=== PATIENT | female | born 1990 | race Caucasian/White ===

== ENCOUNTER 2016-10-06 01:53 | Emergency (ER) | payer OTHER ==
[~2016-10-06] VITALS: Ht 147.3 cm; Wt 96.5 kg
[~2016-10-06 01:53] MED LIST: PREN-39 PO
[2016-10-06 02:04] VITALS: Ht 147.3 cm; Wt 96.5 kg
--- NOTE | 2016-10-06 02:37 | ERD ---
ER Documentation Chief Complaint Date/Time DATE: 10/06/16 TIME: 02:36 Chief Complaint left ankle pain x 1 week, hx of l heel spur, been walking on side of foot HPI 25 year female left ankle pain and left heel pain for 1 week. Meanwhile, side of her foot. Denies any fevers or chills. Denies any nausea vomiting. Denies any other current complaints ROS All systems reviewed and are negative except as per history of present illness. Medications Home Meds Reported Medications Vits W-Ca,Fe,Fa(<1MG) ( Vitamins) 1 Tab Tablet, 1 TAB PO DAILY 11/26/14 Allergies Allergies: Coded Allergies: Penicillins (Verified Allergy, Mild, RASH, 10/06/16) PMhx/Soc History of Surgery: Yes (gallstone removal, c section x 3 ) Anesthesia Reaction: No Hx Neurological Disorder: No Hx Respiratory Disorders: No Hx Cardiac Disorders: No Hx Psychiatric Problems: No Hx Miscellaneous Medical Probl: No Hx Alcohol Use: No Hx Substance Use: No Hx Tobacco Use: No Physical Exam Vitals Vital Signs Date Time Temp Pulse Resp B/P Pulse Ox O2 Delivery O2 Flow Rate FiO2 10/06/16 02:04 97.7 74 20 128/71 99 Physical Exam Const: [] Head: Atraumatic Eyes: Normal Conjunctiva ENT: Normal External Ears, Nose and Mouth. Neck: Full range of motion..~ No meningismus. Resp: Clear to auscultation bilaterally Cardio: Regular rate and rhythm, no murmurs Abd: Soft, non tender, non distended. Normal bowel sounds Skin: No petechiae or rashes Back: No midline or flank tenderness Ext: No cyanosis, or edema Neur: Awake and alert Psych: Normal Mood and Affect Procedures/MDM X-ray Foot 3V Interpreted by me: Bones: No fracture Joints: No dislocation Foreign body: None Medical decision-making: Very pleasant patient with likely heel spur. Discharged home with [facility]. Follow-up with podiatry. Departure Diagnosis: Primary Impression: Heel spur Laterality: left Qualified Code: M77.32 - Heel spur, left Condition: Stable JOSE GARCIA Oct 06, 2016 02:37
[2016-10-06] MEDS ORDERED: NAPR-260 PO (02:38)
--- NOTE | 2016-10-06 03:04 | RADRPT ---
PROCEDURE: XR Calcaneus. CLINICAL INDICATION: FOOT PAIN TECHNIQUE: Two views of the left calcaneus were performed. COMPARISON: None. FINDINGS: No fracture or dislocation is seen. No definite lytic or blastic lesion. No definite soft tissue a bnormality. Joint spaces relatively well maintained.. Small sharply marginated heel spur is seen. IMPRESSION: No definite acute bony abnormality.. Small heel spur. RPTAT: HLBE Kaleigh Peng Physician Date Time Electronically viewed and signed by Kaleigh Peng Physician on 10/06/2016 03:03 LE/
== END 2016-10-06 02:54 | disposition home or self-care (01) ==
LOC: E/R 01:53
DX: M77.32 Calcaneal spur, left foot (principal)
CPT/HCPCS: 73650; Z7502